=== PATIENT | female | born 1980 | race Caucasian/White ===

== ENCOUNTER 2020-11-12 22:17 | Emergency (ER) | payer OTHER ==
[~2020-11-12 22:17] MED LIST: BENTYL10 MG PO; BIRTH CONTROL PO; FLEXERIL10 MG PO; PRILOSEC OTC20 MG PO; PROTONIX 40MG T40 MG PO; TESSALON PERLE100 M1 PO; TRAZODONE HCL50 MG PO
[2020-11-12 23:09] LABS: BASOPHIL 0.6 % (0-2); EOSINOPHIL 1.7 % (0-5); HCT 34.4 % (37.0-47.0); HGB 10.6 g/dl (12.5-16.0); LYMPHOCYTE 40.9 % (15-48); MCH 24.7 pg (25.0-31.0); MCHC 30.8 g/dL (32.0-36.0); MCV 80.2 fL (78.0-100.0); MONOCYTE 8.6 % (0-12); MPV 11.2 fL (6.0-9.5); NEUTROPHIL 47.9 % (41-80); NRBC 0; PLT 264 K/uL (150-400); RBC 4.29 M/uL (4.20-5.40); RDW 14.5 % (11.5-14.0); WBC 6.9 K/uL (4.0-10.5)
[2020-11-12 23:12] LABS: BILIRUBIN NEGATIVE (NEGATIVE); BLOOD TRACE-INTACT Ery/uL (NEGATIVE); CLARITY CLEAR (CLEAR); COLOR YELLOW (YELLOW); GLUCOSE (U) NORMAL (NORMAL); LEUKOCYTES NEGATIVE Leu/uL (NEGATIVE); NITRITE NEGATIVE (NEGATIVE); PROTEIN NEGATIVE (NEGATIVE); UROBILINOGEN 0.2 mg/dL (0.2-1.0); pH 5.5 (5.0-9.0)
[2020-11-12 23:23] LABS: BILIRUBIN - TOTAL 0.3 mg/dL (0.2-1.0); BUN/CREAT RATIO (CALC) 16.9 RATIO; CREATININE 0.71 mg/dL (0.51-0.95); GLOBULIN (CALCULATION) 3.2 g/dL; POTASSIUM 3.4 mmol/L (3.5-5.1); TOTAL PROTEIN 7.2 g/dL (6.4-8.2)
[2020-11-12 23:24] LABS: AMORPHOUS URATES CRYSTALS TRACE
[2020-11-13] MEDS ORDERED: NORCO 5-325 TA1 EACH PO (00:40)
[2020-11-13] MEDS ORDERED: CYCLOBENZAPRINE10 MG PO (00:40)
[2020-11-13] MEDS ORDERED: PHENERGAN25 M1 PO (00:40)
== END 2020-11-13 01:20 | disposition home or self-care (01) ==
LOC: FER 22:17
PROVIDERS: Emergency Medicine Emergency Medical Services
DX: R10.31 Right lower quadrant pain (principal); M54.9 Dorsalgia, unspecified; R11.0 Nausea; I10 Essential (primary) hypertension; Z87.442 Personal history of urinary calculi; Z90.49 Acquired absence of other specified parts of digestive tract; Z98.890 Other specified postprocedural states; Z98.84 Bariatric surgery status; Z88.6 Allergy status to analgesic agent
CPT/HCPCS: 36415; 80053; 81001; 85025; J1170; J1885; J2550; J7030

== ENCOUNTER 2021-06-25 16:02 | Emergency (ER) | payer OTHER ==
[~2021-06-25 16:02] MED LIST changes: +CYCLOBENZAPRINE10 MG PO; +NORCO 5-325 TA1 EACH PO; +PHENERGAN25 M1 PO
[2021-06-25] MEDS ORDERED: NORCO 5/3251 EACH PO (18:44)
[2021-06-25] MEDS ORDERED: NORCO 5-325 TA1 EACH PO (18:47)
== END 2021-06-25 19:19 | disposition home or self-care (01) ==
LOC: FER 16:02
DX: M25.572 Pain in left ankle and joints of left foot (principal); M79.672 Pain in left foot; I10 Essential (primary) hypertension; Z88.6 Allergy status to analgesic agent
CPT/HCPCS: 73610; 73630